=== PATIENT | male | born 1990 | race Caucasian/White ===

== ENCOUNTER 2019-03-26 02:45 | Observation (INO) | payer SELFPAY ==
[2019-03-26] MEDS ORDERED: Sodium Chloride 0.9% 1,000 ML IV ONE ×2 (02:49→09:26)
[2019-03-26] MEDS ORDERED: Diphtheria,Pertussis(Acell),Tetanus Vaccine 0.5 ML Syringe IM ONE (02:49)
[2019-03-26] MEDS ORDERED: cefTRIAXone 1 GM in Premix Bag 1 BAG IV ONE (02:49)
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
[2019-03-26 03:37] LABS: CHLORIDE,CL 101 mmol/L (98-107); SODIUM,NA 139 mmol/L (136-148)
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
[2019-03-26] MEDS ORDERED: Pantoprazole 40 MG Vial IVPUSH ONE (04:43)
[2019-03-26] MEDS ORDERED: Sodium Chloride 0.9% 20 ML ONE (04:48)
[2019-03-26] MEDS ORDERED: Sodium Chloride 0.9% 1,000 ML IV SCH (06:15)
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
[2019-03-26] MEDS ORDERED: Sodium Chloride 0.9% 10 ML Syringe FLUSH PRN (07:28)
[2019-03-26] MEDS ORDERED: Sodium Chloride 0.9% 10 ML SDV IV PRN (07:28)
[2019-03-26] MEDS ORDERED: Sodium Chloride 0.9% 2.5 ML Syringe FLUSH PRN (07:28)
[2019-03-26] MEDS ORDERED: Acetaminophen/HYDROcodone 325-5 MG Tab PO PRN (07:28)
[2019-03-26] MEDS ORDERED: diphenhydrAMINE 50 MG/ML SDV IVPUSH PRN (07:28)
[2019-03-26] MEDS ORDERED: Thiamine 100 MG in Sodium Chloride 0.9% 100 ML IV ONE (07:32)
[2019-03-26] MEDS ORDERED: LORazepam 2 MG/ML SDV IV SCH (07:45)
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
[2019-03-26] MEDS: Lactated Ringers 1,000 ML IV SCH ×2 (10:41→18:30)
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
[2019-03-26 12:24] LABS: CHLORIDE,CL 106 mmol/L (98-107); SODIUM,NA 141 mmol/L (136-148)
[2019-03-26] MEDS: HYDROmorphone 1 MG/ML Syringe IVPUSH PRN ×2 (15:27→17:55)
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
[2019-03-26] MEDS: Acetaminophen/oxyCODONE 325-5 MG Tab PO PRN (19:56)
[2019-03-27] MEDS: HYDROmorphone 1 MG/ML Syringe IVPUSH PRN ×7 (00:05→19:33)
[2019-03-27] MEDS: Lactated Ringers 1,000 ML IV SCH (03:06)
[2019-03-27 06:16] LABS: CHLORIDE,CL 108 mmol/L (98-107); SODIUM,NA 143 mmol/L (136-148)
[2019-03-27] MEDS ORDERED: Iopamidol 755 MG/ML 500 ML Multipack Bottle IVPUSH STA (07:21)
--- NOTE | 2019-03-27 08:52 | CT ---
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 TECHNIQUE : CT Scan of the abdomen pelvis. Urogram protocol. Pre and post IV contrast. 100 cc nonionic COMPARISON : CT abdomen pelvis 03/26/2019 FINDINGS: Urinary tract: The right perinephric fluid shows almost complete clearing. The focal extravasation from the proximal right renal pelvis is relatively contained and it is noted on image 71. There is good drainage from both ureters with no signs of hydronephrosis. Bright is in satisfactory position. Bladder is collapsed. The urogram phase shows no extravasation along the distal ureter. Lung bases: Atelectasis in the right lung base. Miscellaneous abdomen: Stable liver spleen adrenal glands and pancreas. Gallbladder sludge. The GI tract is normal in caliber. Pelvis: No fluid collection. IMPRESSION: 1. Decreasing right perinephric fluid. 2. Persistent small contrast leak from the proximal right renal pelvis but it appears decreased. 3. No signs of obstruction. 4. Satisfactory Bright placement. 5. Basilar atelectasis right lower lobe. Please note that all CT scans at this facility use dose modulation, iterative reconstruction, and/or weight-based dosing when appropriate to reduce radiation dose to as low as reasonably achievable. Dictated by Lc Lazo MD @ Mar 27 2019 8:38AM Signed by Dr. Lc Lazo @ Mar 27 2019 8:50AM
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
[2019-03-27] MEDS: Acetaminophen/oxyCODONE 325-5 MG Tab PO PRN ×4 (09:26→21:34)
[2019-03-27] MEDS: Ciprofloxacin 500 MG Tab PO SCH ×2 (09:27→20:40)
[2019-03-27] MEDS ORDERED: Cyclobenzaprine 10 MG Tab PO PRN (21:06)
[2019-03-28] MEDS: Acetaminophen/oxyCODONE 325-5 MG Tab PO PRN (01:10)
[2019-03-28] MEDS ORDERED: Cyclobenzaprine 10 MG Tab PO SCH (06:00)
[2019-03-28] MEDS: Ciprofloxacin 500 MG Tab PO SCH (08:10)
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
== END 2019-03-28 12:30 | disposition home or self-care (01) ==
LOC: MW.ED 02:45 → MW.MS 06:59
PROVIDERS: ADMIT Surgery; ATTEND Surgery
DX: S37.091A Other injury of right kidney, initial encounter (principal); S02.2XXA Fracture of nasal bones, initial encounter for closed fracture; S06.0X9A Concussion with loss of consciousness of unspecified duration, initial encounter; F10.929 Alcohol use, unspecified with intoxication, unspecified; Y09 Assault by unspecified means
CPT/HCPCS: 36415; 70450; 70450-26; 70486; 70486-26; 71045; 71045-26; 71250; 71250-26; 71260; 71260-26; 72125; 72125-26; 74176; 74176-26; 74177; 74177-26; 80048; 80053; 80305-QW; 81001; 85025; 85027; 85610; 86850; 86900; 86901; 90471; 90715; 96361; 96365; 96367; 96375; 99285-25; A4217; A9270-GY; C9113; G0480; J0696; J1170; J2060; J3411; J7030; J7040; J7120; Q9967

== ENCOUNTER 2024-05-18 19:02 | Emergency (ER) | payer SELFPAY ==
[2024-05-18] MEDS: levETIRAcetam 500 MG Tab PO STA (19:47)
== END 2024-05-18 19:50 | disposition home or self-care (01) ==
LOC: MW.ED 19:02
DX: Z76.0 Encounter for issue of repeat prescription (principal); Z79.899 Other long term (current) drug therapy; Z75.8 Other problems related to medical facilities and other health care
CPT/HCPCS: 99281; A9270

== ENCOUNTER 2024-08-13 17:17 | Emergency (ER) | payer SELFPAY | END 2024-08-13 17:48 | disposition home or self-care (01) | LOC: MW.ED 17:17 | DX: Z76.0 Encounter for issue of repeat prescription (principal); G40.909 Epilepsy, unspecified, not intractable, without status epilepticus; Z75.8 Other problems related to medical facilities and other health care; F17.210 Nicotine dependence, cigarettes, uncomplicated | CPT/HCPCS: 99281; 99283 ==

== ENCOUNTER 2025-04-07 17:02 | Emergency (ER) | payer SELFPAY ==
[2025-04-07] MEDS ORDERED: Sodium Chloride 0.9% 10 ML Syringe FLUSH PRN (17:16)
[2025-04-07] MEDS ORDERED: Sodium Chloride 0.9% 2.5 ML Syringe FLUSH PRN (17:16)
[2025-04-07 17:27] LABS: BASOPHILS ABSOLUTE AUTO 0.05 K/uL (0.00-0.20); BASOPHILS PERCENT AUTO 0.4 % (0.0-1.0); EOSINOPHILS ABSOLUTE AUTO 0.25 K/uL (0.00-0.45); EOSINOPHILS PERCENT AUTO 2.0 % (0.0-6.0); IMMATURE GRAN ABSOLUTE AUTO 0.04 K/uL (0.00-0.05); IMMATURE GRAN PERCENT AUTO 0.3 % (0.0-0.4); LYMPHOCYTES ABSOLUTE AUTO 4.19 K/uL (1.00-4.80); LYMPHOCYTES PERCENT AUTO 34.1 % (24.0-44.0); MEAN PLATELET VOLUME 10.5 fL (9.4-12.4); MONOCYTES ABSOLUTE AUTO 0.81 K/uL (0.00-0.80); MONOCYTES PERCENT AUTO 6.6 % (0.0-8.0); NEUTROPHILS ABSOLUTE AUTO 6.94 K/uL (1.80-7.70); NEUTROPHILS PERCENT AUTO 56.6 % (41.0-71.0); NRBC ABSOLUTE 0.00 K/uL (0.00-0.02); NRBC PERCENT 0.0 /100WBC (0.0-0.2); PLATELET COUNT,PLT 283 K/uL (150-400); RED BLOOD CELL COUNT 4.80 M/uL (4.52-5.90); WHITE BLOOD CELL COUNT,WBC 12.28 K/uL (3.9-11.3)
[2025-04-07 17:40] LABS: INR 1.04 (0.86-1.11)
[2025-04-07 17:41] LABS: PTT,PARTIAL THROMBOPLSTIN TIME < 20.0 SEC (23.9-30.7)
[2025-04-07] MEDS: Iopamidol 755 MG/ML 500 ML Multipack Bottle IVPUSH STA (17:41)
[2025-04-07 17:42] LABS: A/G RATIO 1.3 (0.9-1.6); ALANINE AMINOTRANSFERASE,ALT 31 IU/L (14-63); ASPARTATE AMNIOTRANSFERASE,AST 28 IU/L (15-37); BILIRUBIN TOTAL 0.3 mg/dL (0.2-1.0); BLOOD UREA NITROGEN,BUN 23 mg/dL (7.0-18.0); CARBON DIOXIDE,CO2 17.6 mmol/L (21.0-32.0); CHLORIDE,CL 100 mmol/L (98-107); CREATINE KINASE,CK 379 U/L (26-308); CREATININE 1.7 mg/dL (0.8-1.3); ESTIMATED GFR 54 mL/min (>60); GLUCOSE RANDOM 100 mg/dL (74-106); POTASSIUM,K 4.0 mmol/L (3.5-5.1); PROTEIN TOTAL,TP 7.2 g/dL (6.4-8.2); SODIUM,NA 140 mmol/L (136-148)
[2025-04-07] MEDS: levETIRAcetam 500 MG/5 ML SDV IVPUSH ONE (17:51)
[2025-04-07 18:16] LABS: APPEARANCE,URINE CLEAR; GLUCOSE,URINE NEGATIVE (NEGATIVE); OCCULT BLOOD,URINE TRACE-INTACT (NEGATIVE)
[2025-04-07 18:24] LABS: EPITHELIAL CELLS,URINE RARE (NONE-FEW)
[2025-04-07 18:25] LABS: AMPHETAMINES SCREEN, URINE NEGATIVE (CUTOFF=500); BUPRENORPHINE SCREEN,URINE NEGATIVE (CUTOFF=10); METHADONE SCREEN, URINE NEGATIVE (CUTOFF=200); METHAMPHETAMINES SCREEN, URINE NEGATIVE (CUTOFF=500); OXYCODONE SCREEN,URINE NEGATIVE (CUT0FF=100); PCP SCREEN,URINE NEGATIVE (CUTOFF=25); THC SCREEN,URINE 20 NG/ML NEGATIVE (CUTOFF=50)
[2025-04-07 18:32] LABS: LACTIC ACID 2.2 mmol/L (0.4-2.0)
== END 2025-04-07 19:25 | disposition home or self-care (01) ==
LOC: MW.ED 17:02
DX: G40.909 Epilepsy, unspecified, not intractable, without status epilepticus (principal); Z79.899 Other long term (current) drug therapy
CPT/HCPCS: 36415; 70450; 71045; 71260; 72125; 74177; 80053; 80305; 81001; 82550; 82947; 83605; 83735; 84484; 85025; 85610; 85730; 93005; 96361; 96374; 99285; J1953; J7030; Q9967; 93010; 99283